=== PATIENT | female | born 1945 | race Caucasian/White ===

== ENCOUNTER 2019-03-06 16:45 | Emergency (ER) | payer OTHER ==
[~2019-03-06] VITALS: Ht 157.5 cm; Wt 86.2 kg
[2019-03-06] MEDS ORDERED: LACTULOSE 20Gm/30ML SOLN PO ONE (20:15)
[2019-03-06] MEDS ORDERED: LIDOCAINE 1% HCL (LOCAL ANESTH.) INJ 20ML MDV ID ONE (20:15)
[2019-03-06] MEDS ORDERED: TRIAMCINOLONE 40MG/ML 1ML VIAL IM ONE (20:15)
[2019-03-06] MEDS: cefTRIAXone SOD 1,000 MG VL IM ONE ×2 (20:34→21:03)
[2019-03-06 20:58] VITALS: BP 137/74
== END 2019-03-06 21:31 | disposition home or self-care (01) ==
LOC: ER 16:55
DX: M75.01 Adhesive capsulitis of right shoulder (principal); K59.00 Constipation, unspecified
CPT/HCPCS: 74018; 93971; 96372; 99284; J2001; J3301; J0696